=== PATIENT | female | born 1950 ===

== ENCOUNTER 2017-03-15 07:00 | Day surgery (SDC) | payer OTHER ==
[~2017-03-15] VITALS: Ht 165.1 cm; Wt 90.7 kg
[~2017-03-15 07:00] MED LIST: AVALIDE 300-121 EACH PO; CARDURA1 MG PO; COREG CR10 MG PO; ELOCON45 G1; ESTR0.624 PO; HYDROCHLOROTH12.5 MG PO; LIPITOR20 MG PO; ZESTRIL2.5 MG PO
== END 2017-03-15 08:00 | disposition home or self-care (01) ==
LOC: CIR.AMB 07:00 → OB/GYN 12:15
DX: D25.1 Intramural leiomyoma of uterus (principal); N84.0 Polyp of corpus uteri; N72 Inflammatory disease of cervix uteri; N81.3 Complete uterovaginal prolapse; N73.6 Female pelvic peritoneal adhesions (postinfective); N80.0 Endometriosis of uterus